=== PATIENT | male | born 1960 ===

== ENCOUNTER 2024-12-13 06:33 | Day surgery (SDC) | payer OTHER ==
[2024-12-07 13:40] VITALS: BMI 29.8
[2024-12-13] MEDS ORDERED: MIDAZOLAM HCL 2 MG/2 ML SINGLE DOSE VIAL ONE (10:53)
[2024-12-13] MEDS ORDERED: ONDANSETRON 4 MG/2 ML VIAL ONE (11:09)
[2024-12-13 11:27] VITALS: BP 141/84; PULSE 73; RESP 16; TEMP 97.8
== END 2024-12-13 11:52 | disposition home or self-care (01) ==
LOC: JASU-SURG 06:33
PROVIDERS: ATTEND Urology
PROC: 0TF3XZZ Fragmentation in Right Kidney Pelvis, External Approach (ICD-10-PCS; principal; 2024-12-13 10:59)
DX: N20.0 Calculus of kidney (principal)